=== PATIENT | female | born 2000 | race Caucasian/White ===

== ENCOUNTER 2019-11-13 10:40 | Emergency (ER) | payer OTHER ==
[~2019-11-13] VITALS: Ht 165.1 cm; Wt 56.8 kg
[2019-11-13 10:51] VITALS: BP 119/78
[2019-11-13] MEDS ORDERED: ALLE24TA7 PO (10:54)
[2019-11-13] MEDS ORDERED: PRED10PA2 PO (10:54)
[2019-11-13] MEDS ORDERED: SING10TA32 PO (10:54)
[2019-11-13] MEDS ORDERED: FLUT44IN INH (11:06)
[2019-11-13] MEDS ORDERED: ATRO0.063 INH (11:06)
[2019-11-13] MEDS ORDERED: KETOROLAC 60MG 2ML VIAL IM ONE (11:15)
[2019-11-13] MEDS ORDERED: KETOROLAC 30 MG/ML 1ML VIAL As Ordered ONE (11:18)
[2019-11-13] MEDS ORDERED: SKEL800T97 PO (11:38)
== END 2019-11-13 11:46 | disposition home or self-care (01) ==
LOC: M ED 10:40 → EDBD 10:40 → M ED 11:46
DX: S30.0XXA Contusion of lower back and pelvis, initial encounter (principal); S39.012A Strain of muscle, fascia and tendon of lower back, initial encounter; W10.9XXA Fall (on) (from) unspecified stairs and steps, initial encounter; Y92.9 Unspecified place or not applicable; J45.909 Unspecified asthma, uncomplicated; Z91.010 Allergy to peanuts; Z79.899 Other long term (current) drug therapy
CPT/HCPCS: 99284; J1885

== ENCOUNTER → 2020-09-04 | Outpatient (REF) | payer OTHER ==
[~2020-09-04] MED LIST: ALLE24TA7 PO; ATRO0.063 INH; FLUT44IN INH; PRED10PA2 PO; SING10TA32 PO; SKEL800T97 PO
[2020-09-04 19:29] LABS: HCG, SERUM QUALITATIVE POSITIVE (NEGATIVE)
== END ==
LOC: M LAB REF 18:04
PROVIDERS: ATTEND Nurse Practitioner Family
DX: N91.2 Amenorrhea, unspecified (principal)

== ENCOUNTER → 2020-09-18 | Outpatient (REF) | payer OTHER ==
[2020-09-18 14:04] LABS: HEMATOCRIT 41.6 % (36.0-47.0); HEMOGLOBIN 13.6 g/dl (12.0-15.5); MEAN CORPUSCULAR HEMOGLOBIN 29.6 pg (27.0-33.0); MEAN CORPUSCULAR HGB CONC 32.7 g/dl (32.0-36.5); MEAN CORPUSCULAR VOLUME 90.4 fl (80.0-96.0); PLATELET COUNT, AUTOMATED 221 10^3/uL (150-450); WHITE BLOOD COUNT 10.1 10^3/uL (4.0-10.0)
[2020-09-18 15:19] LABS: HEPATITIS C VIRUS ABY INDEX < 0.0 INDEX (<0.8); HIV 1&2 SCREEN CENTAUR NEGATIVE (NEGATIVE)
== END ==
LOC: M PLALAB 10:35
PROVIDERS: ATTEND Advanced Practice Midwife
DX: Z36.89 Encounter for other specified antenatal screening (principal); Z3A.10 10 weeks gestation of pregnancy

== ENCOUNTER → 2020-09-27 | Outpatient (CLI) | payer OTHER | LOC: M PLALAB 14:08 | PROVIDERS: ATTEND Advanced Practice Midwife | DX: Z34.81 Encounter for supervision of other normal pregnancy, first trimester (principal) ==

== ENCOUNTER → 2020-11-28 | Outpatient (CLI) | payer OTHER ==
--- NOTE | 2020-11-28 23:55 | REP ---
INDICATION: ANATOMY COMPARISON: None. TECHNIQUE: Transabdominal obstetrical ultrasound with color Doppler evaluation. FINDINGS: Examination demonstrates a single live intrauterine in variable presentation. motion is identified by technologist. Placenta is noted anterior and grade 1 without evidence for placenta previa or abruption. Amniotic fluid volume is normal. Cervix measures 4.3 cm in length and appears closed.. Selected gestational age: 20 weeks 1 day with CARMELITA 04/16/2021. Gestational age by current measurements 20 weeks 2 days with CARMELITA 04/15/2021. FHR equals 146 beats per minute. Estimated weight 330 grams (41stpercentile). Anatomical assessment demonstrates normal structures including cranium, choroid plexus, cavum, cerebellum/posterior fossa, facial features, lungs, four-chamber heart/ventricular outflow tracts, diaphragm, stomach, cord insertion/three-vessel cord, kidneys/bladder, and extremities. Limited evaluation of the spine due to positioning. IMPRESSION: Single live intrauterine in variable presentation demonstrating appropriate estimated weight. Limited evaluation of the spine may warrant follow-up. Remainder of the anatomical assessment is complete and normal. <Electronically signed by Rubio Adams > 11/28/20 [id number]
== END ==
LOC: M WHC 15:26
PROVIDERS: ATTEND Obstetrics & Gynecology
DX: Z36.89 Encounter for other specified antenatal screening (principal); Z3A.14 14 weeks gestation of pregnancy

== ENCOUNTER → 2020-12-12 | Outpatient (CLI) | payer OTHER | LOC: M WHC 10:14 | PROVIDERS: ATTEND Obstetrics & Gynecology | DX: Z36.89 Encounter for other specified antenatal screening (principal); Z3A.22 22 weeks gestation of pregnancy ==

== ENCOUNTER → 2020-12-28 | Outpatient (CLI) | payer OTHER ==
--- NOTE | 2020-12-28 12:57 | REP ---
INDICATION: F/U ANATOMY. COMPARISON: Obstetric ultrasound dated 11/28/2020. TECHNIQUE: Multiple ultrasonographic views of the gravid uterus. FINDINGS: On the prior study the anatomy was unremarkable except that the spine could not be adequately demonstrated. On the study today the spine is adequately demonstrated and is unremarkable. The remainder of the anatomy is again re-evaluated today and is unremarkable as previously, including: Cranium, cavum septum pellucidum, falx, intracranial ventricles, choroid plexus, cerebellum, cisterna magna, facial profile, orbits, upper lip, lungs, cardiac rhythm, four-chamber heart, cardiac right left ventricular outflow tracts, diaphragm, stomach, abdominal wall, right and left kidneys, bladder, spine, right and left upper extremities, right left lower extremities and 3 vessel cord. No anomalies are identified. There is a single intrauterine gestation in a transverse lie. heart rate is 146 beats per minute. The placenta is anterior with grade 1 maturity. No placenta previa is identified. The umbilical cord inserts centrally onto the placenta. There is a three-vessel cord. The amniotic fluid volume subjectively is normal. Cervix measures 3.9 cm length. Gestational age on today's ultrasound is 24 weeks 5 days with an CARMELITA of 04/14/2021. Gestational age by the prior study is 24 weeks 3 days with an CARMELITA of 04/16/2021. Estimated weight is 739 g/1 lb, 10 oz. This is the 59th percentile for 24 weeks 3 days. IMPRESSION: The spine is adequately demonstrated and is unremarkable. The remainder of the anatomy is again re-evaluated and is unremarkable. No anomalies are identified. <Electronically signed by Binh Dominguez > 12/28/20 [id number]
== END ==
LOC: M WHC 10:52
PROVIDERS: ATTEND Obstetrics & Gynecology
DX: Z36.9 Encounter for antenatal screening, unspecified (principal); Z3A.24 24 weeks gestation of pregnancy

== ENCOUNTER → 2021-01-10 | Outpatient (CLI) | payer OTHER ==
[2021-01-10 14:26] LABS: HEMATOCRIT 31.9 % (36.0-47.0); HEMOGLOBIN 10.5 g/dl (12.0-15.5); MEAN CORPUSCULAR HEMOGLOBIN 30.2 pg (27.0-33.0); MEAN CORPUSCULAR HGB CONC 32.9 g/dl (32.0-36.5); MEAN CORPUSCULAR VOLUME 91.7 fl (80.0-96.0); PLATELET COUNT, AUTOMATED 192 10^3/uL (150-450); RED BLOOD COUNT 3.48 10^6/uL (4.00-5.40); WHITE BLOOD COUNT 11.7 10^3/uL (4.0-10.0)
== END ==
LOC: M PLALAB 10:34
PROVIDERS: ATTEND Obstetrics & Gynecology
DX: Z36.89 Encounter for other specified antenatal screening (principal); Z3A.22 22 weeks gestation of pregnancy

== ENCOUNTER → 2021-01-15 | Outpatient (REF) | payer OTHER | LOC: M PLALAB 14:46 | PROVIDERS: ATTEND Obstetrics & Gynecology | DX: Z36.89 Encounter for other specified antenatal screening (principal); Z3A.22 22 weeks gestation of pregnancy ==

== ENCOUNTER → 2021-03-22 | Outpatient (REF) | payer OTHER | LOC: M SFHCWAGY 12:53 | PROVIDERS: ATTEND Obstetrics & Gynecology | DX: Z34.92 Encounter for supervision of normal pregnancy, unspecified, second trimester (principal) ==

== ENCOUNTER 2021-04-16 06:42 | Inpatient (IN) | payer OTHER ==
[~2021-04-16] VITALS: Ht 165.1 cm; Wt 73.6 kg
[2021-04-16] VITALS (13 sets, daily range): BP systolic 105–136; BP diastolic 57–75
--- OUTSIDE RECORDS SUMMARY | 2021-04-16 07:02 | CCD | Continuity of Care Document ---
Author Author Alana BLUM [facility] Organization Unknown Address [address] [place] [address] Phone [phone] Care Team Providers Care Record Producer Name Role Phone [facility] - Obstetrics & Gynecology AUTM [phone] Problems Active Problems Provider Date Mild persistent asthma Lidia Blum FNP Onset: Allergic rhinitis Lidia Blum FNP Onset: 09/04/2020 Social History Type Date Description Comments Sex Unknown Tobacco Use Start: Unknown Never Used Smokeless Tobacco ETOH Use Rarely consumes alcohol Tobacco Use Start: Unknown Patient has never smoked Recreational Drug Use Never Used Drugs Smoking Status Reviewed: 01/14/21 Patient has never smoked Exercise Type/Frequency Exercises regularly Tattoo/Piercing Pierced ears Sun Exposure Does not use sunscreen Sun Exposure Does not use tanning beds Seat Belt/Car Seat Always uses seat belt Bike Helmet Always Smoke Alarms Yes Smoke Alarms Carbon Monoxide Detector: Yes Allergies, Adverse Reactions, Alerts Active Allergies Criticality Reaction | Severity Comments Date NKDA Unable to assess criticality 11/29/2019 seasonal Unable to assess criticality 11/29/2019 Medications Active Medications SIG Qnty Indications Ordering Provide r Date Tablets 1 by mouth every day 90tabs N91.2 Lidia Blum FNP 09/04/2020 Singulair 10mg Tablets 1 by mouth every day 90tabs Lidia Blum FNP Flovent HFA 44mcg/Act Aerosol inhale two puffs by mouth twice a day to control asthma Unk nown Zoloft 100mg Tablets 1 by mouth every day Unknown History Medications Zyrtec Allergy 10mg Tablets 1 by mouth every day as needed for allergies 90tabs Makayla Blum FNP 09/04/2020 - 12/07/2020 Immunizations Description No Information Available Vital Signs Date Vital Result Comment 01/14/2021 9:26am BP Systolic 99 mmHg BP Diastolic 60 mmHg Heart Rate 110 /min Body Temperature 97.5 F Respiratory Rate 17 /min Height 65 inches 5'5" Weight 146.38 lb O2 % BldC Oximetry 98 % Peak Expiratory Flow Rate 405 Estimated Peak Flow Rate [place] Body Weight 125 lb BMI (Body Mass Index) 24.4 kg/m2 12/07/2020 9:38am BP Systolic 101 mmHg BP Diastolic 58 mmHg Heart Rate 110 /min Body Temperature 97.0 F Respiratory Rate 17 /min Height 65 inches 5'5" Weight 138.25 lb O2 % BldC Oximetry 98 % Peak Expiratory Flow Rate 405 Estimated Peak Flow Rate Last Menstrual Period [id number] [place] Body Weight 125 lb BMI (Body Mass Index) 23.0 kg/m2 Results Test Acquired Date Facility Test Result H/L Range Note Laboratory test finding 09/04/2020 [facility] [phone] HCG Serum Qualitative POSITIVE Abnormal Negative Laboratory test finding 09/04/2020 [facility] [address] [place] [address] [phone] Test Urine POSITIVE Procedures Date Code Description Status 01/14/2021 31634 Office/Outpatient Established Lo w MDM 20-29 Min Completed 12/07/2020 03388 Preventive Medicine 18-39 Years, Est. Completed 09/04/2020 91180 Office/Outpatient Established Lo w MDM 20-29 Min Completed Medical Devices Description No Information Available Encounters Type Date Location Provider Dx Diagnosis Office Visit 01/14/2021 9:15a Main Office Lidia Blum FNP F41.9 Anxiety disorder, unspecified Office Visit 12/07/2020 9:45a Main Office Lidia Blum FNP Z00.0 0 Encntr for general adult medical exam w/o abnormal findings J45.30 Mild persistent asthma, unco mplicated J30.9 Allergic rhinitis, unspecifi ed F41.9 Anxiety disorder, unspecifie d Office Visit 09/04/2020 3:15p Main Office PlemarielaMakaylay, CHILDBIRTH AND INFANT CARE TEACHER N91.2 Amenorrhea, unspecified J45.30 Mild persistent asthma, unco mplicated J30.9 Allergic rhinitis, unspecifi ed F41.9 Anxiety disorder, unspecifie d Assessments Date Code Description Provider 01/14/2021 F41.9 Anxiety disorder, unspecified Pl eskach Lidia, CHILDBIRTH AND INFANT CARE TEACHER 12/07/2020 Z00.00 Encounter for genera l adult medical examination without abnormal findings Plegeoffach, Lidia, CHILDBIRTH AND INFANT CARE TEACHER 12/07/2020 J45.30 Mild persistent asthma, uncompli cated Pleskach, Lidia, CHILDBIRTH AND INFANT CARE TEACHER 12/07/2020 J30.9 Allergic rhinitis, unspecified P leskach, Lidia, CHILDBIRTH AND INFANT CARE TEACHER 12/07/2020 F41.9 Anxiety disorder, unspecified Pl eskach, Lidia, CHILDBIRTH AND INFANT CARE TEACHER 09/04/2020 N91.2 Amenorrhea, unspecified Pleskach , Lidia, CHILDBIRTH AND INFANT CARE TEACHER 09/04/2020 J45.30 Mild persistent asthma, uncompli cated Pleskach, Lidia, CHILDBIRTH AND INFANT CARE TEACHER 09/04/2020 J30.9 Allergic rhinitis, unspecified P leskach, Lidia, CHILDBIRTH AND INFANT CARE TEACHER 09/04/2020 F41.9 [address] disorder, unspecified [address] eskach, Lidia, CHILDBIRTH AND INFANT CARE TEACHER Plan of Treatment 01/14/2021 - PleskachMakaylay, CHILDBIRTH AND INFANT CARE TEACHER* F41.9 Anxiety disorder, unspecified* Comments:* Patient reports overall she is doing well on her sertraline, but she is having significant panic attacks related to getting the COVID vaccine. At this time I feel her anxiety is significant and since she is our treatment options are limited. I fell it's in her best interest to refrain from anything that causes her this much stress until after she delivers. Functional Status Functional Condition Comment Date Status Glasses Active Independent with all ADL's Activ e Contacts Active Independent with all IADL's Acti ve Mental Status Mental Condition Comment Date Status None Active Referrals Refer to Reason for Referral Status Appt Date [facility] pt needs to establi sh with ob, for postive test. thank you. Closed 09/18/[address] [place], [place] [address] [phone]
--- OUTSIDE RECORDS SUMMARY | 2021-04-16 07:02 | CCD ---
Author Author [facility] Organization [facility] Address Unknown Phone Unavailable Care Team Providers Care Revenue Integrity Analyst Name Role Phone MarianoJaylentroy Ting Unavailable PROBLEMS Type Condition ICD9-CM Code [id number] Code Onset Dates Condition S tatus W/U Status Risk SNOMED Code Notes Problem Supervision of other normal Z34.80 Ac tive confirm [id number] Problem Generalized anxiety disorder F41.1 Active confirme d 20290050 ALLERGIES No Known Allergies ENCOUNTERS from 1998 to 2021-03-12 Encounter Location Date Provider Diagnosis [facility] [address] [place] [address] [place] [address] Feb, Ting Bill Encounter for superv ision of normal first in third trimester Z34.03 and 34 weeks gestation of Z3A.34 IMMUNIZATIONS Vaccine Route Administration Date Status TDAP 0.5mL Boostrix IM Intramuscular Feb 22, 2021 Administere d SOCIAL HISTORY Tobacco Use: Social History Observation Description Date Details (start date - stop date) Never Smoker Sex Assigned At : Social History Observation Description Sex Assigned At Unknown Alcohol Screening: Question Answer Notes Did you have a drink containing alcohol in the past year? No Points 0 Interpretation Negative Tobacco Use: Question Answer Notes Are you a: never smoker REASON FOR REFERRAL No Information VITAL SIGNS Weight 158.8 lbs Feb, Weight-kg 72.03 kg Feb, Height 64 in Feb, BMI 27.258 kg/m2 Feb, Blood pressure systolic 104 mm Hg Feb, Blood pressure diastolic 66 mm Hg Feb, MEDICATIONS Medication SIG (Take, Route, Frequency, Duration) Notes Start Da te End Date Status 28-0.8 MG 1 tablet Orally Once a day Active Singulair 10 MG 1 tablet Orally Once a day Active Zoloft 25 MG 1 tablet Orally Once a day Not-Taking Zoloft 100 MG 1 tablet Orally Once a day Active PROCEDURES No Information RESULTS No Results REASON FOR VISIT 2 WK PN MEDICAL (GENERAL) HISTORY Type Description Date Medical History asthma Medical History anxiety Surgical History wisdom teeth removal 2015 Goals Section No Information Health Concerns No Information MEDICAL EQUIPMENT No Information MENTAL STATUS No Information FUNCTIONAL STATUS No Information ASSESSMENTS Encounter Date Diagnosis Assessment Notes Treatment Notes Treatm ent Clinical Notes Feb, 34 weeks gestation of (ICD-10 - Z3A.34 ) Feb, Encounter for supervision of normal first in third trimester (ICD-10 - Z34.03) PLAN OF TREATMENT Next Appt Details 2 weeks Reason: Provider Name:Ting Bill, 5 09:40:00 AM, [address] [place] [address] , [place], [address], Provider Name:Ting Bill, 2021-03-18 2 08:00:00 AM, [address] [place] [address] , [place], [address], Follow Up:2 weeksPrenatal Insurance Providers Payer Name Payer Address Payer Phone Insured Name Patient Relati onship to Insured Coverage Start Date Coverage End Date [place] [phone] AKI SERNA self
--- OUTSIDE RECORDS SUMMARY | 2021-04-16 07:02 | CCD ---
Author Author [facility] Organization [facility] Address Unknown Phone Unavailable Care Team Providers Care Apartment Maintenance Manager Name Role Phone [place] Unavailable PROBLEMS Type Condition ICD9-CM Code [id number] Code Onset Dates Condition S tatus W/U Status Risk SNOMED Code Notes Problem Supervision of other normal Z34.80 Ac tive confirm [id number] Problem Generalized anxiety disorder F41.1 Active confirme d [id number] ALLERGIES No Known Allergies ENCOUNTERS from 1998 to 2021-04-14 Encounter Location Date Provider Diagnosis [facility] [address] [place] [address] [place] [address] Mar, Brook Aleman Encounter for superv ision of normal first in third trimester Z34.03 and 39 weeks gestation of Z3A.39 IMMUNIZATIONS Vaccine Route Administration Date Status TDAP 0.5mL Boostrix IM Intramuscular Mar 22, 2021 Administere d TDAP 0.5mL Boostrix IM Intramuscular Feb 22, [...] FOR REFERRAL No Information VITAL SIGNS Weight 162.4 lbs Mar, Weight-kg 73.66 kg Mar, Height 64 in Mar, BMI 27.876 kg/m2 Mar, Blood pressure systolic 114 mm Hg Mar, Blood pressure diastolic 68 mm Hg Mar, MEDICATIONS Medication SIG (Take, Route, Frequency, Duration) Notes Start Da te End Date Status Singulair 10 MG 1 tablet Orally Once a day Active 28-0.8 MG 1 tablet Orally Once a day Active Zoloft 100 MG 1 tablet Orally Once a day Active Zoloft 25 MG 1 tablet Orally Once a day Not-Taking PROCEDURES No Information RESULTS No Results REASON FOR VISIT 1WK PN MEDICAL (GENERAL) HISTORY Type Description Date Medical History asthma Medical History anxiety Surgical History wisdom teeth removal 2015 Goals Section No Information Health Concerns No Information MEDICAL EQUIPMENT No Information MENTAL STATUS No Information FUNCTIONAL STATUS No Information ASSESSMENTS Encounter Date Diagnosis Assessment Notes Treatment Notes Treatm ent Clinical Notes Mar, 39 weeks gestation of (ICD-10 - Z3A.39 ) Mar, Encounter for supervision of normal first in third trimester (ICD-10 - Z34.03) PLAN OF TREATMENT Next Appt Details 1 Week Reason:pn Provider Name:Katie Tonio Zhang, 2021-04-15 0 8:40:00 AM, [address] [facility], , [place], [address], Follow Up:1 Weekpn Insurance Providers Payer Name Payer Address Payer Phone Insured Name Patient Relati onship to Insured Coverage Start Date Coverage End Date [address] [phone] AKI SERNA self
--- OUTSIDE RECORDS SUMMARY | 2021-04-16 07:02 | CCD ---
Author Author [facility] Organization [facility] Address Unknown Phone Unavailable Care Team Providers Care Ramp Manager Name Role Phone Pleskach, Lidia ANATOMY PROFESSOR Unavailable Unavailable Pleskach, Lidia ANATOMY PROFESSOR Unavailable Unavailable Pleskach, Lidia ANATOMY PROFESSOR Unavailable Unavailable Pleskach, Lidia ANATOMY PROFESSOR Unavailable Unavailable Pleskach, Lidia ANATOMY PROFESSOR Unavailable Unavailable Pleskach, Lidia ANATOMY PROFESSOR Unavailable Unavailable Pleskach, Lidia ANATOMY PROFESSOR Unavailable Unavailable Pleskach, Lidia ANATOMY PROFESSOR Unavailable Unavailable Pleskach, Lidia ANATOMY PROFESSOR Unavailable Unavailable Pleskach, Lidia ANATOMY PROFESSOR Unavailable Unavailable Pleskach, Lidia ANATOMY PROFESSOR Unavailable Unavailable Pleskach, Lidia ANATOMY PROFESSOR Unavailable Unavailable Pleskach, Lidia ANATOMY PROFESSOR Unavailable Unavailable Pleskach, Lidia ANATOMY PROFESSOR Unavailable Unavailable Pleskach, Lidia ANATOMY PROFESSOR Unavailable Unavailable Pleskach, Lidia ANATOMY PROFESSOR Unavailable Unavailable Pleskach, Lidia ANATOMY PROFESSOR Unavailable Unavailable Pleskach, Lidia ANATOMY PROFESSOR Unavailable Unavailable Pleskach, Lidia ANATOMY PROFESSOR Unavailable Unavailable Pleskach, Lidia ANATOMY PROFESSOR Unavailable Unavailable Pleskach, Lidia ANATOMY PROFESSOR Unavailable Unavailable Pleskach, Lidia ANATOMY PROFESSOR Unavailable Unavailable Pleskach, Lidia ANATOMY PROFESSOR Unavailable Unavailable Pleskach, Lidia ANATOMY PROFESSOR Unavailable Unavailable Pleskach, Lidia ANATOMY PROFESSOR Unavailable Unavailable Pleskach, Lidia ANATOMY PROFESSOR Unavailable Unavailable Pleskach, Lidia ANATOMY PROFESSOR Unavailable Unavailable Pleskach, Lidia ANATOMY PROFESSOR Unavailable Unavailable Pleskach, Lidia ANATOMY PROFESSOR Unavailable Unavailable Pleskach, Lidia ANATOMY PROFESSOR Unavailable Unavailable Pleskach, Lidia ANATOMY PROFESSOR Unavailable Unavailable Pleskach, Lidia ANATOMY PROFESSOR Unavailable Unavailable Pleskach, Lidia ANATOMY PROFESSOR Unavailable Unavailable Pleskach, Lidia ANATOMY PROFESSOR Unavailable Unavailable Pleskach, Lidia ANATOMY PROFESSOR Unavailable Unavailable Pleskach, Lidia ANATOMY PROFESSOR Unavailable Unavailable Pleskach, Lidia ANATOMY PROFESSOR Unavailable Unavailable Pleskach, Lidia ANATOMY PROFESSOR Unavailable Unavailable Pleskach, Lidia ANATOMY PROFESSOR Unavailable Unavailable Pleskach, Lidia ANATOMY PROFESSOR Unavailable Unavailable Pleskach, Lidia ANATOMY PROFESSOR Unavailable Unavailable Pleskach, Lidia ANATOMY PROFESSOR Unavailable Unavailable Pleskach, Lidia ANATOMY PROFESSOR Unavailable Unavailable Pleskach, Lidia ANATOMY PROFESSOR Unavailable Unavailable Madan Miller Unavailable [phone] Madan Miller Unavailable [phone] Madan Miller Unavailable [phone] Madan Miller Unavailable [phone] Madan Miller Unavailable [phone] Madan Miller Unavailable [phone] Re-disclosure Warning The records that you are about to access may contain information from federally-assisted alcohol or drug abuse programs. If such information is present, then the following federally mandated warning applies: This information has been disclosed to you from records protected by federal confidentiality rules (42 CFR part 2). The federal rules prohibit you from making any further disclosure of this information unless further disclosure is expressly permitted by the written consent of the person to whom it pertains or as otherwise permitted by 42 CFR part 2. A general authorization for the release of medical or other information is NOT sufficient for this purpose. The Federal rules restrict any use of the information to criminally investigate or prosecute any alcohol or drug abuse patient.The records that you are about to access may contain highly sensitive health information, the redisclosure of which is protected by Article 27-F of the [facility] Public Health law. If you continue you may have access to information: Regarding HIV / AIDS; Provided by facilities licensed or operated by the [facility] Office of Mental Health; or Provided by the [facility] Office for People With Developmental Disabilities. If such information is present, then the following [facility] mandated warning applies: This information has been disclosed to you from confidential records which are protected by state law. State law prohibits you from making any further disclosure of this information without the specific written consent of the person to whom it pertains, or as otherwise permitted by law. Any unauthorized further disclosure in violation of state law may result in a fine or chcf sentence or both. A general authorization for the release of medical or other information is NOT sufficient authorization for further disc losure. Encounters Encounter Providers Location Date Indications Data Source(s ) ( ESTOB) [facility] Est OB [address] [place] [address] 04/10/2021 12:00:00 AM EST eCW1 ([facility]) ( ESTOB) [facility] [address] [place] [address] 03/29/2021 12:00:00 AM EST eCW1 ([facility]) [facility] [address] [facility] [address] 03/22/2021 12:00:00 AM EDT eCW1 ([facility]) ( ESTOB) [facility] [address] [place] [address] 03/08/2021 12:00:00 AM EDT eCW1 ([facility]) ( ESTOB) [facility] [address] [place] [address] 02/22/2021 12:00:00 AM EDT eCW1 ([facility]) ( ESTOB) [facility] [address] [place] [address] 02/08/2021 12:00:00 AM EDT eCW1 ([facility]) Outpatient Attender: Lidia Rogers [facility] Main Office 01/14/2021 0 9:15:00 AM EDT MEDENT ([facility] ( ESTOB) [facility] Est [facility] [address] [place] [address] 01/10/2021 12:00:00 AM EDT eCW1 ([facility]) ( ESTOB) [facility] [address] [place] [address] 12/12/2020 12:00:00 AM EDT eCW1 ([facility]) Outpatient Attender: Lidia Rogers [facility] Main Office 12/07/2020 0 9:45:00 AM EDT MEDENT ([facility] Outpatient Attender: Madan Miller 12/04 11:36:26 AM EDT - 12/04/2020 12:07:31 PM EDT DocuTap ([facility] ) Unknown [address] [facility] [address] 12/03/2020 12:00:00 AM EDT eCW1 ([facility]) ( ESTOB) [facility] Est OB [address] [place] [address] 11/13/2020 12:00:00 AM EDT eCW1 ([facility]) ( ESTOB) [facility] Est OB [address] [place] [address] 10/17/2020 12:00:00 AM EDT eCW1 ([facility]) Unknown [address] [facility] [address] 10/04/2020 12:00:00 AM EDT eCW1 ([facility]) ( NEWOB) [facility] New OB Visit [address] [place] [address] 09/18/2020 12:00:00 AM EDT eCW1 ([facility]) Outpatient Attender: Lidia Rogers [facility] Main Office 09/04/2020 0 3:15:00 PM EDT MEDENT ([facility] Immunizations Vaccine Date Status Description Data Source(s) Tdap 03/22/2021 10:16:00 AM EDT completed e CW1 ([facility]) Tdap 03/22/2021 10:16:00 AM EDT completed e CW1 ([facility]) Tdap 03/22/2021 10:16:00 AM EDT completed e CW1 ([facility]) Tdap 02/22/2021 10:49:00 AM EDT completed e CW1 ([facility]) Tdap 02/22/2021 10:49:00 AM EDT completed e CW1 ([facility]) Tdap 02/22/2021 10:49:00 AM EDT completed e CW1 ([facility]) Tdap 02/22/2021 10:49:00 AM EDT completed e CW1 ([facility]) Tdap 02/22/2021 10:49:00 AM EDT completed e CW1 ([facility]) Tdap 02/22/2021 10:49:00 AM EDT completed e CW1 ([facility]) Medications Medication Brand Name Start Date Product Form Dose Route Admi nistrative Instructions Pharmacy Instructions Status Indications Reaction Description Data Source(s) cetirizine hydrochloride 10 MG Oral Tablet [Zyrtec] Zyrtec A llergy 09/04/2020 12:00:00 AM EDT ORAL completed [facility] ([facility] 09/04/2020 12:00:00 AM EDT ORAL active MEDENT ([facility] Insurance Providers Payer name Policy type / Coverage type Policy ID Covered alliance party ID Covered alliance party's relationship to jones Policy Jones Plan Information [facility] [id number] [facility] [id number] [facility] [id number] Problems, Conditions, and Diagnoses Code Display Name Description Problem Type Effective Dates Data Source(s) F41.1 [id number] Generalized anxiety disorder Problem 021 12:00:00 AM EDT eCW1 ([facility]) Z34.80 care Supervision of other normal P roblem 09/18/2020 12:00:00 AM EDT eCW1 ([facility]) J30.9 Allergic rhinitis Allergic rhinitis Problem 09/04/2020 12:00:00 AM EDT MEDENT ([facility] J45.30 Mild persistent asthma Mild persistent asthma Problem 09/04/2020 12:00:00 AM EDT [facility] ([facility] Surgeries/Procedures Procedure Description Date Indications Data Source(s) TDAP VACCINE 7/> YR IM 02/22/2021 12:00:00 AM EDT eCW1 ([facility]) OFFICE OUTPATIENT VISIT 15 MINUTES 01/14/2021 12:00:00 AM EDT [facility] ([facility] PERIODIC PREVENTIVE MED EST PATIENT 18-39 YRS 12/08/19 12:00:00 AM EDT [facility] ([facility] OFFICE OUTPATIENT VISIT 15 MINUTES 09/04/2020 12:00:00 AM EDT [facility] ([facility] Results ID Date Data Source [id number] 04/04/2021 06:02:00 PM EST [facility] Name Value Range Interpretation Code Description Data Floresita rce(s) Supporting Document(s) SARS coronavirus 2 RdRp gene Covid_negative [facility] This lab was ordered by [employer] [place] and reported by [employer]. ID Date Data Source [id number] 03/26/2021 03:54:00 PM EST [facility] Name Value Range Interpretation Code Description Data Floresita rce(s) Supporting Document(s) SARS coronavirus 2 RdRp gene Covid_negative [facility] This lab was ordered by [employer] [employer] [facility] [place] and reported by [employer]. ID Date Data Source [id number] 03/21/2021 04:56:00 PM EDT [facility] Name Value Range Interpretation Code Description Data Floresita rce(s) Supporting Document(s) SARS coronavirus 2 RdRp gene Covid_negative [facility] This lab was ordered by [employer] and reported by [employer]. ID Date Data Source [id number] 03/14/2021 04:58:00 PM EDT [facility] Name Value Range Interpretation Code Description Data Floresita rce(s) Supporting Document(s) SARS coronavirus 2 RdRp gene Covid_negative [facility] This lab was ordered by [employer] and reported by [employer]. ID Date Data Source [id number] 03/07/2021 05:05:00 PM EDT [facility] Name Value Range Interpretation Code Description Data Floresita rce(s) Supporting Document(s) SARS coronavirus 2 RdRp gene Covid_negative [facility] This lab was ordered by [facility] and reported by [employer]. ID Date Data Source [id number] 02/21/2021 04:51:00 PM EDT [facility] Name Value Range Interpretation Code Description Data Floresita rce(s) Supporting Document(s) SARS coronavirus 2 RdRp gene Covid_negative [facility] This lab was ordered by [facility] and reported by [employer]. ID Date Data Source [id number] 02/07/2021 04:57:00 PM EDT [facility] Name Value Range Interpretation Code Description Data Floresita rce(s) Supporting Document(s) SARS coronavirus 2 RdRp gene Covid_negative [facility] This lab was ordered by [facility] and reported by [employer]. ID Date Data Source [id number] 01/31/2021 05:00:00 PM EDT [facility] Name Value Range Interpretation Code Description Data Floresita rce(s) Supporting Document(s) SARS coronavirus 2 RdRp gene Covid_negative [facility] This lab was ordered by [facility] and reported by [employer]. ID Date Data Source [id number] 01/24/2021 05:23:00 PM EDT [facility] Name Value Range Interpretation Code Description Data Floresita rce(s) Supporting Document(s) SARS coronavirus 2 RdRp gene Covid_negative [facility] This lab was ordered by [facility]EL[facility] malcolm nd reported by [employer]. ID Date Data Source [id number] 12/04/2020 11:45:00 AM EDT [facility] Name Value Range Interpretation Code Description Data Floresita rce(s) Supporting Document(s) SARS-CoV-2 RNA Resp Ql SULLY+probe NOT DETECTED [facility] This lab was ordered by DANNY kumar and reported by DANNY Lyles. ID Date Data Source [id number] 09/18/2020 12:00:00 AM EDT eCW1 (formerly [facility]) Name Value Range Interpretation Code Description Data Floresita rce(s) Supporting Document(s) NEGATIVE NEGATIVE HBsAg eCW1 ([facility]) ID Date Data Source URINE CULTURE 09/18/2020 12:00:00 AM EDT eCW1 (formerly [facility]) Name Value Range Interpretation Code Description Data Floresita rce(s) Supporting Document(s) URINE CULTURE eCW1 ([facility]) ID Date Data Source RUBELLA IMMUNE STATUS IgG 09/18/2020 12:00:00 AM EDT eCW1 ([facility]) Name Value Range Interpretation Code Description Data Floresita rce(s) Supporting Document(s) IMMUNE IMMUNE RUBELLA IgG QUALITATIVE eCW1 ( [facility]) ID Date Data Source SYPHILIS ANTIBODY (RPR SCREEN) 09/18/2020 12:00:00 AM EDT eC W1 ([facility]) Name Value Range Interpretation Code Description Data Floresita rce(s) Supporting Document(s) NONREACTIVE NONREACTIVE SYPHILIS eCW1 ([facility]) ID Date Data Source [id number] 09/18/2020 12:00:00 AM EDT eCW1 (formerly [facility]) Name Value Range Interpretation Code Description Data Floresita rce(s) Supporting Document(s) HIV 1&2 ANTIBODY SCREEN eCW1 ( [facility]) ID Date Data Source HEPATITIS C ANTIBODY INDEX 09/18/2020 12:00:00 AM EDT eCW1 ( [facility]) Name Value Range Interpretation Code Description Data Floresita rce(s) Supporting Document(s) < 0.0 <0.8 HEPATITIS C VIRUS WILFREDO IND EX eCW1 ([facility]) ID Date Data Source CBC - Complete Blood Count 09/18/2020 12:00:00 AM EDT eCW1 ( [facility]) Name Value Range Interpretation Code Description Data Floresita rce(s) Supporting Document(s) 10.1 4.0-10.0 WHITE BLOOD COUNT eCW1 ([facility]) 41.6 36.0-47.0 HEMATOCRIT eCW1 ([facility]) 4.60 4.00-5.40 RED BLOOD COUNT eCW1 (Counts include 234 beds at the [facility]) 13.6 12.0-15.5 HEMOGLOBIN eCW1 ([facility]) 29.6 27.0-33.0 MEAN CORPUSCULAR HEMOGLOB IN eCW1 ([facility]) 32.7 32.0-36.5 MEAN CORPUSCULAR HGB CONC eCW1 ([facility]) 13.1 11.5-14.5 RED CELL DISTRIBUTION WID TH eCW1 ([facility]) 90.4 80.0-96.0 MEAN CORPUSCULAR VOLUME e CW1 ([facility]) 221 150-450 PLATELET COUNT, AUTOMATED eCW1 ([facility]) ID Date Data Source Type and Screen Prenatal1 09/18/2020 12:00:00 AM EDT eCW1 ([facility]) Name Value Range Interpretation Code Description Data Floresita rce(s) Supporting Document(s) NEGATIVE AB SCREEN PNP1 GEL (VIS) eCW1 ([facility]) ID Date Data Source [id number] 09/04/2020 03:19:00 PM EDT [facility] ([facility] Name Value Range Interpretation Code Description Data Floresita rce(s) Supporting Document(s) Choriogonadotropin.beta subunit ( test) [Pres ence] in Serum or Plasma Laboratory test result Abnormal (applies to non-numeric results) [facility] ([facility] ID Date Data Source [id number] 09/04/2020 03:03:00 PM EDT [facility] ([facility] Name Value Range Interpretation Code Description Data Floresita rce(s) Supporting Document(s) Test Urine Laboratory test result [facility] ([facility] Procedure Social History Code Duration Value Status Description Data Source(s ) Smoking 04/10/2021 12:00:00 AM EST Never Smoker completed Never S moker eCW1 ([facility]) Smoking 04/02/2021 12:00:00 AM EST Never Smoker completed Never S moker eCW1 ([facility]) Smoking 03/22/2021 12:00:00 AM EDT Never Smoker completed Never S moker eCW1 ([facility]) Smoking 03/08/2021 12:00:00 AM EDT Never Smoker completed Never S moker eCW1 ([facility]) Smoking 02/22/2021 12:00:00 AM EDT Never Smoker completed Never S moker eCW1 ([facility]) Smoking 02/22/2021 12:00:00 AM EDT Never Smoker completed Never S moker eCW1 ([facility]) Smoking 01/14/2021 12:00:00 AM EDT Patient has never smoked co mpleted Patient has never smoked [facility] ([facility] Smoking 01/09/2021 12:00:00 AM EDT Never Smoker completed Never S moker eCW1 ([facility]) Smoking 12/12/2020 12:00:00 AM EDT Never Smoker completed Never S moker eCW1 ([facility]) Smoking 11/13/2020 12:00:00 AM EDT Never Smoker completed Never S moker eCW1 ([facility]) Smoking 11/13/2020 12:00:00 AM EDT Never Smoker completed Never S moker eCW1 ([facility]) Smoking 10/17/2020 12:00:00 AM EDT Never Smoker completed Never S moker eCW1 ([facility]) Smoking 09/18/2020 12:00:00 AM EDT Never Smoker completed Never S moker eCW1 ([facility]) Smoking 09/18/2020 12:00:00 AM EDT Never Smoker completed Never S moker eCW1 ([facility]) Vital Signs ID Date Data Source UNK Name Value Range Interpretation Code Description Data Source(s) Body weight 162.4 [lb_av] 162.4 [lb_av] eCW1 ([facility]) Body weight 73.66 kg 73.66 kg eCW1 (formerly [facility]) Body height 64 [in_i] 64 [in_i] eCW1 ([facility]) Body mass index (BMI) [Ratio] 27.876 kg/m2 27.8 76 kg/m2 eCW1 ([facility]) Systolic blood pressure 114 mm[Hg] 114 mm[Hg] e CW1 ([facility]) Diastolic blood pressure 68 mm[Hg] 68 mm[Hg] eCW1 ([facility]) Body weight 160.2 [lb_av] 160.2 [lb_av] eCW1 ([facility]) Body weight 72.67 kg 72.67 kg eCW1 (formerly [facility]) Body height 64 [in_i] 64 [in_i] eCW1 (formerly [facility]) Body mass index (BMI) [Ratio] 27.498 kg/m2 27.4 98 kg/m2 eCW1 ([facility]) Systolic blood pressure 108 mm[Hg] 108 mm[Hg] e CW1 ([facility]) Diastolic blood pressure 70 mm[Hg] 70 mm[Hg] eCW1 ([facility]) Body weight 158.8 [lb_av] 158.8 [lb_av] eCW1 ([facility]) Body weight 72.03 kg 72.03 kg eCW1 (formerly [facility]) Body height 64 [in_i] 64 [in_i] eCW1 (formerly [facility]) Body mass index (BMI) [Ratio] 27.258 kg/m2 27.2 58 kg/m2 eCW1 ([facility]) Systolic blood pressure 104 mm[Hg] 104 mm[Hg] e CW1 ([facility]) Diastolic blood pressure 66 mm[Hg] 66 mm[Hg] eCW1 ([facility]) Systolic blood pressure 100 mm[Hg] 100 mm[Hg] e CW1 ([facility]) Body weight 155.8 [lb_av] 155.8 [lb_av] eCW1 ([facility]) Body weight 70.67 kg 70.67 kg eCW1 ([facility]) Body height 64 [in_i] 64 [in_i] eCW1 ([facility]) Diastolic blood pressure 60 mm[Hg] 60 mm[Hg] eCW1 ([facility]) Body mass index (BMI) [Ratio] 26.743 kg/m2 26.7 43 kg/m2 eCW1 ([facility]) Body weight 69.13 kg 69.13 kg eCW1 ([facility]) Body mass index (BMI) [Ratio] 26.159 kg/m2 26.1 59 kg/m2 eCW1 ([facility]) Systolic blood pressure 108 mm[Hg] 108 mm[Hg] e CW1 ([facility]) Diastolic blood pressure 64 mm[Hg] 64 mm[Hg] eCW1 ([facility]) Body weight 152.4 [lb_av] 152.4 [lb_av] eCW1 ([facility]) Body height 64 [in_i] 64 [in_i] eCW1 ([facility]) Systolic blood pressure 99 mm[Hg] 99 mm[Hg] M EDENT ([facility] Diastolic blood pressure 60 mm[Hg] 60 mm[Hg] MED[facility] ([facility] Heart rate 110 /min 110 /min MED[facility] ([facility] Body temperature 97.5 [degF] 97.5 [degF] [facility] ([facility] Respiratory rate 17 /min 17 /min [facility] ( [facility] Body height 65 [in_i] 65 [in_i] MED[facility] ([facility] 5'5" Body weight 146.38 [lb_av] 146.38 [lb_av] MEDEN T ([facility] Oxygen saturation in Arterial blood by Pulse oximetry 98 % 98 % [facility] ([facility] [place] body weight 125 [lb_av] 125 [lb_av] MEDEN T ([facility] Body mass index (BMI) [Ratio] 24.4 kg/m2 24.4 k g/m2 [facility] ([facility] Body weight 147.0 [lb_av] 147.0 [lb_av] eCW1 ([facility]) Body weight 66.68 kg 66.68 kg eCW1 ([facility]) Body height 64 [in_i] 64 [in_i] eCW1 (formerly [facility]) Body mass index (BMI) [Ratio] 25.232 kg/m2 25.2 32 kg/m2 eCW1 ([facility]) Systolic blood pressure 104 mm[Hg] 104 mm[Hg] e CW1 ([facility]) Diastolic blood pressure 64 mm[Hg] 64 mm[Hg] eCW1 ([facility]) Body weight 139.4 [lb_av] 139.4 [lb_av] eCW1 ([facility]) Body height 64 [in_i] 64 [in_i] eCW1 ([facility]) Body mass index (BMI) [Ratio] 23.93 kg/m2 23.93 kg/m2 eCW1 ([facility]) Systolic blood pressure 102 mm[Hg] 102 mm[Hg] e CW1 ([facility]) Diastolic blood pressure 60 mm[Hg] 60 mm[Hg] eCW1 ([facility]) Systolic blood pressure 101 mm[Hg] 101 mm[Hg] M EDENT ([facility] [place] body weight 125 [lb_av] 125 [lb_av] MEDEN T ([facility] Diastolic blood pressure 58 mm[Hg] 58 mm[Hg] MED[facility] ([facility] Heart rate 110 /min 110 /min [facility] ([facility] Body temperature 97.0 [degF] 97.0 [degF] MED[facility] ([facility] Respiratory rate 17 /min 17 /min MED[facility] ( [facility] Body height 65 [in_i] 65 [in_i] MEDENT ([facility] 5'5" Body weight 138.25 [lb_av] 138.25 [lb_av] MEDEN T ([facility] Oxygen saturation in Arterial blood by Pulse oximetry 98 % 98 % MED[facility] ([facility] Body mass index (BMI) [Ratio] 23.0 kg/m2 23.0 k g/m2 MED[facility] ([facility] Body weight 130.6 [lb_av] 130.6 [lb_av] eCW1 ([facility]) Body height 64 [in_i] 64 [in_i] eCW1 ([facility]) Body mass index (BMI) [Ratio] 22.417 kg/m2 22.4 17 kg/m2 eCW1 ([facility]) Systolic blood pressure 100 mm[Hg] 100 mm[Hg] e CW1 ([facility]) Diastolic blood pressure 60 mm[Hg] 60 mm[Hg] W1 ([facility]) Body weight 129.2 [lb_av] 129.2 [lb_av] eCW1 ([facility]) Body height 64 [in_i] 64 [in_i] eCW1 ([facility]) Body mass index (BMI) [Ratio] 22.177 kg/m2 22.1 77 kg/m2 eCW1 ([facility]) Systolic blood pressure 104 mm[Hg] 104 mm[Hg] e CW1 ([facility]) Diastolic blood pressure 64 mm[Hg] 64 mm[Hg] eCW1 ([facility]) Body weight 122.6 [lb_av] 122.6 [lb_av] eCW1 ([facility]) Body weight 55.61 kg 55.61 kg W1 ([facility]) Body height 64 [in_i] 64 [in_i] eCW1 (formerly [facility]) Body mass index (BMI) [Ratio] 21.044 kg/m2 21.0 44 kg/m2 eCW1 ([facility]) Systolic blood pressure 100 mm[Hg] 100 mm[Hg] e CW1 ([facility]) Diastolic blood pressure 58 mm[Hg] 58 mm[Hg] eCW1 ([facility]) Body height 65 [in_i] 65 [in_i] MED[facility] ([facility] 5'5" Body weight 119.25 [lb_av] 119.25 [lb_av] MEDEN T ([facility] [place] body weight 125 [lb_av] 125 [lb_av] MEDEN T ([facility] Body mass index (BMI) [Ratio] 19.8 kg/m2 19.8 k g/m2 [facility] ([facility] Oxygen saturation in Arterial blood by Pulse oximetry 100 % 100 % [facility] ([facility] Systolic blood pressure 113 mm[Hg] 113 mm[Hg] M EDENT ([facility] Diastolic blood pressure 69 mm[Hg] 69 mm[Hg] [facility] ([facility] Heart rate 101 /min 101 /min [facility] ([facility] Body temperature 97.3 [degF] 97.3 [degF] [facility] ([facility] Respiratory rate 18 /min 18 /min [facility] ( [facility]
--- OUTSIDE RECORDS SUMMARY | 2021-04-16 07:02 | CCD ---
Author Author [facility] Organization [facility] Address Unknown Phone Unavailable Care Team Providers Care Index Editor Name Role Phone Jolly Jha Unavailable PROBLEMS Type Condition ICD9-CM Code [id number] Code Onset Dates Condition S tatus W/U Status Risk SNOMED Code Notes Problem Supervision of other normal Z34.80 Ac tive confirm [id number] Problem Generalized anxiety disorder F41.1 Active confirme d [id number] ALLERGIES No Known Allergies ENCOUNTERS from 1998 to 2021-02-27 Encounter Location Date Provider Diagnosis [facility] [address] [place] [address] [place] [address] Jan, Jolly Jha Mental disorder affe cting in third trimester O99.343 ; Generalized anxiety disorder F41.1 and 30 weeks gestation of Z3A.30 IMMUNIZATIONS Vaccine Route Administration Date Status TDAP [...] FOR REFERRAL No Information VITAL SIGNS Weight 152.4 lbs Jan, Weight-kg 69.13 kg Jan, Height 64 in Jan, BMI 26.159 kg/m2 Jan, Blood pressure systolic 108 mm Hg Jan, Blood pressure diastolic 64 mm Hg 24 Sep, 2021 MEDICATIONS Medication SIG (Take, Route, Frequency, Duration) Notes Start Da te End Date Status 28-0.8 MG 1 tablet Orally Once a day Active Singulair 10 MG 1 tablet Orally Once a day Active Zoloft 100 MG 1 tablet Orally Once a day Active Zoloft 25 MG 1 tablet Orally Once a day Not-Taking PROCEDURES No Information RESULTS No Results REASON FOR VISIT 4 wk pn MEDICAL (GENERAL) HISTORY Type Description Date Medical History asthma Medical History anxiety Surgical History wisdom teeth removal 2015 Goals Section No Information Health Concerns No Information MEDICAL EQUIPMENT No Information MENTAL STATUS No Information FUNCTIONAL STATUS No Information ASSESSMENTS Encounter Date Diagnosis Assessment Notes Treatment Notes Treatm ent Clinical Notes Jan, Generalized anxiety disorder (ICD-10 - F41.1) Jan, Mental disorder affecting pr egnancy in third trimester (ICD-10 - O99.343) Jan, 30 weeks gestation of (ICD-10 - Z3A.30 ) PLAN OF TREATMENT Next Appt Details 2 Weeks Reason:PN Provider Name:Ting Bill, 2021-02-2 2 08:20:00 AM, [address] [place], [place] [id number], [place], [address], Provider Name:Ting Bill, 2021-03-0 5 09:40:00 AM, [address] [place], [place] [id number], [place], [address], Follow Up:2 WeeksPN Insurance Providers Payer Name Payer Address Payer Phone Insured Name Patient Relati onship to Insured Coverage Start Date Coverage End Date [place] [phone] AKI SERNA self
--- OUTSIDE RECORDS SUMMARY | 2021-04-16 07:02 | CCD ---
Author Author [facility] Organization [facility] Address Unknown Phone Unavailable Care Team Providers Care Loan Supervisor Name Role Phone MarianoJaylenYousuf simmonsy Unavailable PROBLEMS Type Condition ICD9-CM Code ZIT74-BC Code Onset Dates Condition S tatus W/U Status Risk SNOMED Code Notes Problem Supervision of other normal Z34.80 Ac tive confirm [id number] Problem Generalized anxiety disorder F41.1 Active confirme d [id number] ALLERGIES No Known Allergies ENCOUNTERS from 1998 to 2021-04-02 Encounter Location Date Provider Diagnosis [facility] [address] [place] [address] [place] [address] Mar, Ting iBll Encounter for superv ision of normal first in third trimester Z34.03 and 37 weeks gestation of Z3A.37 IMMUNIZATIONS Vaccine Route Administration Date Status TDAP [...] FOR REFERRAL No Information VITAL SIGNS Weight 160.2 lbs Mar, Weight-kg 72.67 kg Mar, Height 64 in Mar, BMI 27.498 kg/m2 Mar, Blood pressure systolic 108 mm Hg Mar, Blood pressure diastolic 70 mm Hg Mar, MEDICATIONS Medication SIG (Take, Route, Frequency, Duration) Notes Start Da te End Date Status Zoloft 25 MG 1 tablet Orally Once a day Not-Taking 28-0.8 MG 1 tablet Orally Once a day Active Zoloft 100 MG 1 tablet Orally Once a day Active Singulair 10 MG 1 tablet Orally Once a day Active PROCEDURES No Information RESULTS No Results REASON FOR VISIT 1WK PN MEDICAL (GENERAL) HISTORY Type Description Date Medical History asthma Medical History anxiety Surgical History wisdom teeth removal 2016 Goals Section No Information Health Concerns No Information MEDICAL EQUIPMENT No Information MENTAL STATUS No Information FUNCTIONAL STATUS No Information ASSESSMENTS Encounter Date Diagnosis Assessment Notes Treatment Notes Treatm ent Clinical Notes Mar, 37 weeks gestation of (ICD-10 - Z3A.37 ) Mar, Encounter for supervision of normal first in third trimester (ICD-10 - Z34.03) PLAN OF TREATMENT Next Appt Details 1 Week Reason: Provider Name:Ting Bill, 2021-03-18 9 10:40:00 AM, [address] [place] [address] , [place], [address], Provider Name:Katie Zhang, 2021-04-15 0 8:40:00 AM, [address] [place] [address] , [place], [address], Follow Up:1 WeekPrenatal Insurance Providers Payer Name Payer Address Payer Phone Insured Name Patient Relati onship to Insured Coverage Start Date Coverage End Date [place] [phone] AKI SERNA self
--- OUTSIDE RECORDS SUMMARY | 2021-04-16 07:02 | CCD ---
Author Author [facility] Organization [facility] Address Unknown Phone Unavailable Care Team Providers Care Diet Assistant Name Role Phone Ting Bill Unavailable PROBLEMS Type Condition ICD9-CM Code CLJ89-FC Code Onset Dates Condition S tatus W/U Status Risk SNOMED Code Notes Problem Supervision of other normal Z34.80 Ac tive confirm [id number] Problem Generalized anxiety disorder F41.1 Active confirme d [id number] ALLERGIES No Known Allergies ENCOUNTERS from 1998 to 2021-02-25 Encounter Location Date Provider Diagnosis [facility] [address] [place] [address] [place] [address] Feb, Ting Bill 32 weeks gestation o f Z3A.32 ; Encounter for supervision of normal first in third trimester Z34.03 and Encounter for immunization Z23 IMMUNIZATIONS Vaccine Route Administration Date Status TDAP [...] FOR REFERRAL No Information VITAL SIGNS Weight 155.8 lbs Feb, Weight-kg 70.67 kg Feb, Height 64 in Feb, BMI 26.743 kg/m2 Feb, Blood pressure systolic 100 mm Hg Feb, Blood pressure diastolic 60 mm Hg Feb, MEDICATIONS Medication SIG (Take, Route, Frequency, Duration) Notes Start Da te End Date Status 28-0.8 MG 1 tablet Orally Once a day Active Singulair 10 MG 1 tablet Orally Once a day Active Zoloft 100 MG 1 tablet Orally Once a day Active Zoloft 25 MG 1 tablet Orally Once a day Not-Taking PROCEDURES from 1998 to 2021-02-25 Procedure Date Ordered Result Body Site Imm: Boostrix 0.5mL IM TDAP 2021-02-22 N/A RESULTS No Results REASON FOR VISIT 2 wk pn MEDICAL (GENERAL) HISTORY Type Description Date Medical History asthma Medical History anxiety Surgical History wisdom teeth removal 2016 Goals Section No Information Health Concerns No Information MEDICAL EQUIPMENT No Information MENTAL STATUS No Information FUNCTIONAL STATUS No Information ASSESSMENTS Encounter Date Diagnosis Assessment Notes Treatment Notes Treatm ent Clinical Notes Feb, 32 weeks gestation of (ICD-10 - Z3A.32 ) Feb, Encounter for supervision of normal first in third trimester (ICD-10 - Z34.03) Feb, Encounter for immunization (ICD-10 - Z23) PLAN OF TREATMENT Next Appt Details 2-3 week Reason: Provider Name:Ting Bill, 2021-02-2 2 08:20:00 AM, [address] [place] [phone], [place], [address], Provider Name:Ting Bill, 2021-03-0 5 09:40:00 AM, [address] [place] [phone], [place], [address], Follow Up:2-3 weekprenatal Insurance Providers Payer Name Payer Address Payer Phone Insured Name Patient Relati onship to Insured Coverage Start Date Coverage End Date [place] [phone] AKI SERNA self
--- OUTSIDE RECORDS SUMMARY | 2021-04-16 07:02 | CCD ---
Author Author [facility] Organization [facility] Address Unknown Phone Unavailable Care Team Providers Care Professor Of Chemical Engineering Name Role Phone Brook Aleman Unavailable PROBLEMS Type Condition ICD9-CM Code [id number] Code Onset Dates Condition S tatus W/U Status Risk SNOMED Code Notes Problem Supervision of other normal Z34.80 Ac tive confirm [id number] ALLERGIES No Known Allergies ENCOUNTERS from 1998 to 2021-01-28 Encounter Location Date Provider Diagnosis [facility] [address] [facility] [phone] [place] [address] Dec, Brook Aleman Encounter for superv ision of normal first , second trimester Z34.02 and 26 weeks gestation of Z3A.26 IMMUNIZATIONS No Information SOCIAL HISTORY Tobacco Use: Social History Observation [...] FOR REFERRAL No Information VITAL SIGNS Weight 147.0 lbs Dec, Weight-kg 66.68 kg Dec, Height 64 in Dec, BMI 25.232 kg/m2 Dec, Blood pressure systolic 104 mm Hg Dec, Blood pressure diastolic 64 mm Hg Dec, MEDICATIONS Medication SIG (Take, Route, Frequency, Duration) Notes Start Da te End Date Status Zoloft 100 MG 1 tablet Orally Once [...] Notes Treatment Notes Treatm ent Clinical Notes Dec, Encounter for supervision of normal first , second trimester (ICD-10 - Z34.02) Dec, 26 weeks gestation of (ICD-10 - Z3A.26 ) PLAN OF TREATMENT Next Appt Details 4 Weeks Reason:pn Provider Name:Jolly Jha, 2021-02-08 10:00:00 AM, [address] [facility], , [place], [address], Follow Up:4 Weekspn Insurance Providers Payer Name Payer Address Payer Phone Insured Name Patient Relati onship to Insured Coverage Start Date Coverage End Date [address] [phone] AKI SERNA self
[2021-04-16] MEDS ORDERED: LACTATED RINGER'S 1000 ML IV STA (07:22)
--- NOTE | 2021-04-16 07:29 | HPEPDOC ---
Obstetrical History & Physical General Date of Admission Apr 16, 2021 at 06:57 History of Present Illness 20 yo at 40 0/7 weeks by LMP c/w 9 week ultrasound (EDC=04/16/2021) present s with regular contractions for several hours. She thinks she might be leaking fluid. Contractions became more intense. no bleeding. Chief Complaint: Contractions, term Information Provided By: Patient Age: 20 : 1 Term: 0 Pre-term: 0 Abortions: 0 Livin Care Care: Good Care Dating Final EDC: Apr 16, 2021 Final EDC by: LMP, 1st trimester (US) Past Medical History Past Obstetrical History : Past Obstetrical History: Primgravida Past Medical History Medical History none Surgical History: Denies/None Family History Significant Family History: No pertinent family hx Social History Marital Status: Family situation: Spouse/partner home Psychosocial History: No pertinent psych hx * Smoker: non-smoker Allergies Coded Allergies: peanut (Verified Allergy, Unknown, anaphylaxis, 11/13/19) Medications Scheduled Fexofenadine/Pseudoephedrine (Jenny-D 24 Hour Tablet) 1 Each Tab.er.24h, 1 TAB PO DAILY Fluticasone Propionate (Flovent Hfa) 44 Mcg/Act Aer.w.adap, 2 PUFF INH BID Ipratropium [place] (Atrovent Hfa) 12.9 Gm Hfa.aer.ad, 2 PUFF INH QID Metaxalone (Skelaxin) 800 Mg Tablet, 1 TAB PO TID Montelukast Sodium (Singulair) 10 Mg Tablet, 1 TAB PO DAILY Prednisone (Prednisone) 10 Mg Tab.ds.pk, 1 TAB PO DAILY Physical Examination Physical Examination GENERAL: Alert and oriented times three. BREAST: . ABDOMEN: Gravid and non-tender to touch. FETUS: Is vertex (VTX) by sterile vaginal examination (SVE), fetus is vertex (VTX) by Ankur. HEART RATE: Regular rate and rhythm. LUNGS: Clear to auscultation (CTA). EXTREMITIES: No edema. No clonus. Deep tendon reflexes (DTRs) + . Laboratory Data 24H LABS Laboratory Tests 2 04/16/21 07:06: Serology Scanned Report Hepatitis B Testing 04/16/21 07:12: CBC/BMP Pertinent Laboratoy Data Blood Type: B+ Group B Streptococcus: Negative Vaginal Examination Dilation: 3 cm Effacement: 90% Station: -2 Cervical Consistency: Medium Cervical Position: Middle Presentation: Cephalic presentation Assessment Variability: Moderate Accelerations: Positive Decelerations: None Tocometer Contractions: Yes Frequency: regular Assessment/Plan Assessment Pt is a 20-year-old (G)1 para (P)0 at 40+0 weeks by LMP c/w 9-week ultrasound presents to Labor and Delivery in active labor Plan Admit and orient. Visual Inspector and consent. Diet: liquids. Plans epidural Group B Streptococcus (GBS) negative. Labs and intravenous (IV) per unit protocol. Counseled on Pitocin and induction of labor (IOL). Lactated Ringers (LR): Bolus 800 mL, then at 125 mL/hr. Anticipate normal spontaneous delivery (). C-S as appropriate. JEN GIVENS MD Apr 16, 2021 07:29
[2021-04-16 07:37] LABS: HEMATOCRIT 32.3 % (36.0-47.0); HEMOGLOBIN 10.5 g/dl (12.0-15.5); MEAN CORPUSCULAR HEMOGLOBIN 25.2 pg (27.0-33.0); MEAN CORPUSCULAR HGB CONC 32.5 g/dl (32.0-36.5); MEAN CORPUSCULAR VOLUME 77.6 fl (80.0-96.0); PLATELET COUNT, AUTOMATED 238 10^3/uL (150-450); RED BLOOD COUNT 4.16 10^6/uL (4.00-5.40); WHITE BLOOD COUNT 14.5 10^3/uL (4.0-10.0)
[2021-04-16] MEDS ORDERED: ACET-842 PO (07:37)
[2021-04-16] MEDS ORDERED: PRENTAB9 PO (07:37)
[2021-04-16] MEDS ORDERED: ZOLO100T PO (07:39)
[2021-04-16] MEDS ORDERED: HOME MED LIST COMPLETE! XX SCH (07:40)
[2021-04-16] MEDS ORDERED: FENTANYL 2MCG/ML ROPIVACAINE 0.2% IN 0.9% NACL 100ML IVBAG As Ordered ONE (07:49)
[2021-04-16] MEDS: LR 1,000 ML IV SCH ×2 (08:11→09:34)
[2021-04-16] MEDS ORDERED: OXYTOCIN 30 UNITS IN 0.9% NaCl 500ML IV BAG (J2590) As Ordered ONE (09:27)
[2021-04-16] MEDS ORDERED: LIDOCAINE 1% MDV 20ML VIAL As Ordered ONE (11:25)
[2021-04-16 11:27] LABS: CORD GAS ABE V -7.9; CORD GAS HCO3 V 18.1 MEQ/L; CORD GAS O2 SAT V 59.3 %; CORD GAS PCO2 V 38.8 mmHg; CORD GAS PH V 7.286 UNITS; CORD GAS SBC V 17.3 MEQ/L; CORD GAS TCO2 V 19.3 MEQ/L
[2021-04-16 11:29] LABS: CORD GAS ABE A -7.9; CORD GAS O2 SAT A 38.2 %; CORD GAS PCO2 A 43.8 mmHg; CORD GAS PH A 7.255 UNITS; CORD GAS PO2 A 17.7 mmHg; CORD GAS SBC A 16.9 MEQ/L; CORD GAS TCO2 A 20.3 MEQ/L
[2021-04-16] MEDS ORDERED: OXYTOCIN DRIP 30 UNITS in IV 1 EA IV SCH (12:30)
[2021-04-16] MEDS ORDERED: METHYLERGONOVINE MALEATE 0.2 MG TAB PO PRN (12:30)
[2021-04-16] MEDS ORDERED: ACETAMINOPHEN TAB 650MG DOSE (2X325MG) PO PRN (12:30)
[2021-04-16] MEDS ORDERED: DOCUSATE SODIUM 100MG CAPSULE PO PRN (12:30)
[2021-04-16] MEDS ORDERED: RHOGAM 300 MCG (1500 IU) INJ (J2790) IM SCH (12:30)
[2021-04-16] MEDS ORDERED: LIDOCAINE 1% MDV 20ML VIAL INFIL ONE (12:30)
[2021-04-16] MEDS ORDERED: ANUSOL HC CREAM 30GM TOP PRN (12:30)
[2021-04-16] MEDS ORDERED: ACETAMINOPHEN 500 MG TAB PO PRN (12:30)
[2021-04-16] MEDS ORDERED: MEASLES,MUMPS,RUBELLA VACCINE INJ (MMR-II) (90707) SC SCH (12:30)
[2021-04-16] MEDS ORDERED: DIBUCAINE 1% OINTMENT 30GM TOP PRN (12:30)
[2021-04-16] MEDS ORDERED: IBUPROFEN 600MG TAB PO PRN (12:30)
--- NOTE | 2021-04-16 12:43 | DNPDOC ---
[facility] Delivery Note Delivery Note DATE OF DELIVERY: 04/16/21 at 1114 PREDELIVERY DIAGNOSIS: 40-0/7 weeks' gestation and labor. POST DELIVERY DIAGNOSIS: Delivered. PROCEDURE: Spontaneous vaginal delivery. NUISANCE WILDLIFE TRAPPER: Yeny Jha CNM, MARIO ANESTHESIA: none. ESTIMATED BLOOD LOSS: 400 mL. FINDINGS: 8 pounds 5 ounces; 3760 grams; male , Score 9/9, nuchal cord times 3; multiple variables, bradycardia, meconium. DELIVERY SUMMARY: Alana is a 20-year-old female who is now a at 40 weeks gestation who presented to labor and delivery in active labor. She spontaneous ruptured to a moderate amount of clear fluid, which changed during pushing to meconium. Alana progressed to fully dilated at 0959 and pushed to a living female in the TANO position. a nuchal cord x3 was noted and unable to reduce. The cord was clamped and cut on the perineum. Dr. Davalos was present in the room for delivery. Dr. Caicedo was also notified to be present for delivery. The anterior shoulder delivered with ease and the corpus immediately followed. The baby was placed spig-zy-lvps active and crying with stimulation. Cord gases were collected. The placenta delivered spontaneously and intact at 1121. Uterine hemostasis was achieved via rapid infusion of IV Pitocin and fundal massage. The vagina, cervix, and perineum was inspected and found to have a second degree laceration that was repaired with a 3.[address]-1. Mom and baby are in stable condition. She plans to breastfeed. They haven't decided on a name yet. All counts of sponges and instruments are correct. YENY JHA CNM Apr 16, 2021 12:43
[2021-04-16] MEDS: IBUPROFEN 800 MG TAB PO PRN (14:11)
[2021-04-16] MEDS: PRENATAL VITAMINS CHEWABLE TABLET PO SCH (14:13)
[2021-04-17] MEDS ORDERED: UNRESOLVED CLARIFICATION ENTRY XX SCH (00:01)
[2021-04-17] MEDS: IBUPROFEN 800 MG TAB PO PRN (05:42)
[2021-04-17 06:00] VITALS: BP 123/74
[2021-04-17] MEDS: PRENATAL VITAMINS CHEWABLE TABLET PO SCH (10:10)
[2021-04-17 17:56] VITALS: BP 130/68
[2021-04-18 06:00] VITALS: BP 117/62
[2021-04-18] MEDS: PRENATAL VITAMINS CHEWABLE TABLET PO SCH (10:48)
[2021-04-18] MEDS: IBUPROFEN 800 MG TAB PO PRN (10:49)
== END 2021-04-18 14:05 | disposition home or self-care (01) | DRG 807 ==
LOC: M LDO 06:42 → M LDI 06:57 → M OBS 19:32
PROVIDERS: ADMIT Advanced Practice Midwife; ATTEND Advanced Practice Midwife
PROC: 10E0XZZ Delivery of Products of Conception, External Approach (ICD-10-PCS; principal; 2021-04-16)
PROC: 0KQM0ZZ Repair Perineum Muscle, Open Approach (ICD-10-PCS; 2021-04-16)
DX: O76 Abnormality in fetal heart rate and rhythm complicating labor and delivery (principal); Z37.0 Single live birth; Z3A.40 40 weeks gestation of pregnancy; O69.81X0 Labor and delivery complicated by cord around neck, without compression, not applicable or unspecified; O77.0 Labor and delivery complicated by meconium in amniotic fluid; O70.1 Second degree perineal laceration during delivery

== ENCOUNTER 2022-06-07 20:56 | Emergency (ER) | payer OTHER ==
[~2022-06-07] VITALS: Ht 165.1 cm; Wt 61.4 kg
[~2022-06-07 20:56] MED LIST changes: +ACET-842 PO; +PRENTAB9 PO; +ZOLO100T PO
[2022-06-07 20:57] VITALS: BP 115/75
[2022-06-07] MEDS ORDERED: DIPH50CA PO (21:12)
[2022-06-07] MEDS ORDERED: epi pen IM (21:12)
== END 2022-06-07 21:42 | disposition left against medical advice (07) ==
LOC: M ED 20:56
DX: Z53.21 Procedure and treatment not carried out due to patient leaving prior to being seen by health care provider (principal)

== ENCOUNTER → 2022-06-12 | Outpatient (REF) | payer OTHER ==
[~2022-06-12] MED LIST changes: +DIPH50CA PO; +epi pen IM
[2022-06-12 19:07] LABS: GC DNA AMPLIFICATION NEGATIVE (NEGATIVE)
== END ==
LOC: M LAB REF 17:03
PROVIDERS: ATTEND Nurse Practitioner Family
DX: Z11.8 Encounter for screening for other infectious and parasitic diseases (principal)

== ENCOUNTER → 2023-02-19 | Outpatient (REF) | payer OTHER ==
[~2023-02-19] MED LIST changes: +MONT-5 PO; -SING10TA32 PO
== END ==
LOC: M PLALAB 08:58
PROVIDERS: ATTEND Advanced Practice Midwife
DX: Z12.4 Encounter for screening for malignant neoplasm of cervix (principal)

== ENCOUNTER → 2024-08-15 | Outpatient (CLI) | payer OTHER | LOC: M WHC 07:08 | PROVIDERS: ATTEND Midwife | DX: Z34.80 Encounter for supervision of other normal pregnancy, unspecified trimester (principal) ==

== ENCOUNTER → 2024-12-09 | Outpatient (CLI) | payer OTHER | LOC: M WHC 09:12 | PROVIDERS: ATTEND Midwife | DX: Z34.80 Encounter for supervision of other normal pregnancy, unspecified trimester (principal); Z36.2 Encounter for other antenatal screening follow-up; Z3A.24 24 weeks gestation of pregnancy ==

== ENCOUNTER → 2024-12-19 | Outpatient (CLI) | payer OTHER ==
[2024-12-19 13:17] LABS: PLATELET COUNT, AUTOMATED 238 10^3/uL (150-450)
== END ==
LOC: M PLALAB 10:47
PROVIDERS: ATTEND Midwife
DX: Z34.80 Encounter for supervision of other normal pregnancy, unspecified trimester (principal)